=== PATIENT | male | born 1955 | race Caucasian/White ===

== ENCOUNTER 2017-01-18 05:47 | Observation (INO) | payer BC ==
[~2017-01-18] VITALS: Ht 177.8 cm; Wt 82.1 kg
--- OUTSIDE RECORDS SUMMARY | 2017-01-18 05:52 | XMS REPORT | Continuity of Care Document ---
Author Author [facility] Organization [facility] Address Unknown Phone Unavailable Allergies Active Description Code Type Severity Reaction Onset Reported/Identified Relationship to Patient Clinical Status Yes No Known Allergies [id number] Drug Allergy N/A N/A 09/19/2016 Medications Problems Date Dx Coded Attending Type Code Diagnosis Diagnosed By 09/19/2016 Leoncio Bedolla MD OT K60.1 09/19/2016 Leoncio Bedolla MD OT K60.1 09/19/2016 Leoncio Bedolla MD OT K60.1 09/20/2016 Leoncio Bedolla MD OT K60.1 09/20/2016 Leoncio Bedolla MD OT K60.1 09/20/2016 Leoncio Bedolla MD OT K60.1 09/20/2016 Leoncio Bedolla MD OT K60.1 09/20/2016 Leoncio Bedolla MD OT K60.1 09/20/2016 Leoncio Bedolla MD OT K60.1 09/20/2016 Leoncio Bedolla MD OT K60.1 09/20/2016 Leoncio Bedolla MD OT K60.1 09/20/2016 Leoncio Bedolla MD OT K60.1 09/20/2016 Leoncio Bedolla MD OT I10 09/20/2016 Leoncio Bedolla MD OT K60.1 09/20/2016 Leoncio Bedolla MD OT K64.9 Procedures Results Encounters ACCT No. Visit Date/Time Discharge Status Pt. Type Provider Facility Loc./Unit Complaint [id number] 09/20/2016 10:55:00 2016 15:05:00 DIS Outpatient Leoncio Bedolla MD [facility] ANAL FISSURECTOMY W/ SPHINCTEROTOMY [id number] 10/24/2016 14:44:00 ACT Outpatient Karina Apple [facility] OFFICE [id number] 10/04/2016 14:03:00 ACT Outpatient Karina Apple [facility] OFFICE [id number] 09/20/2016 14:08:00 ACT Outpatient Karina Apple [facility] OFFICE [id number] 09/14/2016 11:20:00 ACT Outpatient Karina Apple [facility] OFFICE [id number] 06/02/2016 14:02:00 ACT Outpatient Karina Apple [facility] OFFICE VISIT [id number] 01/19/2016 11:35:00 ACT Outpatient Karina Apple [facility] OFFICE [id number] 12/24/2015 10:26:00 ACT Outpatient Karina Apple [facility] OFFICE
[2017-01-18] MEDS ORDERED: NORMAL SALINE 1,000 ML IV ONE (06:22)
[2017-01-18] MEDS ORDERED: LORAZEPAM 2 MG/ML INJECTION IV SCH (06:30)
[2017-01-18] MEDS ORDERED: ASPIRIN 81 MG CHEWABLE TABLET PO ONE (06:30)
--- NOTE | 2017-01-18 06:30 | ERPDOC ---
Departure Impression Impression HPI - General Medical General Chief Complaint: Palpitations Stated Complaint: IRREGULAR HEART Time Seen by Provider: 06:06 Source: patient, family Exam Limitations: no limitations HPI - General Medical Initial Comments 61yo man presented to the ER this AM for heart palpitations. Pt is from [facility]; they are here visiting their daughter (in [place]). Pt has a long h/o anxiety d/o, poorly controlled. Was recently started on paxil and prn xanax with minimal relief of sx. Over the last 1.5yrs, pts anxiety has gotten much worse, progressively. Pt is having visual hallucinations (especially at night) that he cannot describe well; he feels like he is actively being pursued/ persecuted by 'Satan'. Pt feels like he is receiving messages from 'God' or ' Satan'. Pt has trouble starting motion/talking. Has trouble with memory that has developed in the last year. Occurred At: home Onset: Gradual, Getting worse Duration: other Severity: severe Associated Symptoms: other (Memory impairment, anxiety, visual hallucinations, ) Hx of Similar Symptoms: Yes Allergies: Coded Allergies: NKDA (Verified Allergy, Unknown, 01/18/17) Past History Past Medical History Metabolic: hypertension Psychological: anxiety Review of Systems Constitutional Constitutional: insomnia Cardiovascular Rhythm/Rate: palpitations, tachycardia GI Upper Abdomen: nausea Psychiatric Psychiatric: anxiety, depression, emotional instability, hallucinations, hears voices, irritability, memory impairment, memory loss, nervousness, DENIES: 0 lobsterman relationships, compulsions, delusions, illusions, nightmares, obsessions, paranoia, suicidal ideation/attempt, tension All other Systems All Other Systems: Reviewed and Negative Physical Exam General General Nourishment: well nourished, well developed, appears stated age, no acute distress, adult, obese General Body Habitus: well groomed Vitals and Pain First Documented Vital Signs Date Time Temp Pulse Resp B/P Pulse Ox O2 Delivery O2 Flow Rate FiO2 01/18/17 05:52 97.6 72 12 175/92 99 Room Air Weight: Kilograms: 82.500 Height (feet): 5 Height (inches): 10.00 Triage Pain Scale: RN VS reviewed by Provider: Yes Normal Exams: Head: Normocephalic w/o trauma Eyes: Pupils are PERRLA w/ EOMI, No scleral icterus, irritation ENMT: No facial trauma, nasal exudates, pharyngeal erythema Neck: Full range of motion, without adenopathy, JVD Lymphatic: No lymphadenopathy Musculoskeletal: No tenderness, or deformity noted Integumentary: No rashes, hives, or bruising noted Respiratory (brief) Respiratory: FOUND: clear all cooper, equal bilaterally, symmetrical, NOT FOUND : rales, wheezes Cardiovascular (brief) Cardiac: FOUND: regular rate, regular rhythm, NOT FOUND: click, gallop, murmur , pedal edema, peripheral edema, rub Capillary Refill: <2 sec Pulses: all distal extremities, equal, strong Abdomen (brief) Abdominal Brief: FOUND: bowel normo active x4, soft, NOT FOUND: distended, hepatosplenomegaly, pulsatile mass, tender Neurologic (brief) Neurological Brief: FOUND: CN w/o gross def to obs, DTR 2/4 all extremities, sensory-no gross deficits, NOT FOUND: Babinski, gait w/o gross def to obs ( halting), motor-no gross deficits (Pt has a resting tremor; is slow to move) Psychiatric (brief) Psychiatric Brief: FOUND: alert, oriented, NOT FOUND: normal affect (Flat affect with 'mask facies') Differential Diagnoses Considering: Depression, DKA, Hypo/Hyperglycemia, Hypo/Hyperkalemia, Hypo/ Hypernatremia, Medication Effect, Metabolic, Psychosis, UTI, Other (Lewy-body dementia) Progress Results/Orders Orders Procedure Category Date Status Time Cbc W/Auto LAB 01/18/17 Complete Diff-Reflex Manual 06:22 Bmp - Basic Metabolic LAB 01/18/17 Complete Panel 06:22 Probnp LAB 01/18/17 Complete 06:22 Troponin I W LAB 01/18/17 Complete Hemolysis Index 06:22 INR LAB 01/18/17 Complete 06:22 EKG EKG 01/18/17 Taken 06:22 Chest, Pa & Lateral RAD 01/18/17 Resulted 06:22 Iv Lock (Ed Only) EDM 01/18/17 Transmitted 06:22 Normal Saline (Normal PHA 01/18/17 Complete Saline Iv) 06:22 Aspirin (Asa) PHA 01/18/17 Complete 06:30 Lorazepam (Ativan) PHA 01/18/17 In Process 06:30 Ct Head W/O Contrast CT 01/18/17 Resulted 06:22 Ethanol LAB 01/18/17 Complete 06:50 Drug Screen LAB 01/18/17 Complete Urine-Test At [facility] 06:50 Acetaminophen LAB 01/18/17 Complete 06:50 Salicylate LAB 01/18/17 Complete 06:50 Ua, Dip Wreflex LAB 01/18/17 Complete Micro[employer] 06:50 Tsh - Thyroid Stim LAB 01/18/17 Complete Hormone 06:50 Magnesium LAB 01/18/17 Complete 06:50 Phosphorus LAB 01/18/17 Complete 06:50 Place In Facility: ED ADM 01/18/17 Transmitted Lab Results Laboratory Tests Test 01/18/17 06:35 01/18/17 07:49 01/18/17 10:53 White Blood Count 7.1T/MM3 Red Blood Count 4.99M/MM3 Hemoglobin 14.8GM/DL Hematocrit 41.4% Mean Corpuscular Volume 83.0UM3 Mean Corpuscular Hemoglobin 29.7UUG Mean Corpuscular Hemoglobin Concent 35.7GM/DL RDW Standard Deviation 37.7FL Platelet Count 302T/MM3 Mean Platelet Volume 9.4UM3 Immature Granulocyte % (Auto) 0.1% Neutrophils (%) (Auto) 68.8% Lymphocytes (%) (Auto) 20.3% Monocytes (%) (Auto) 10.2% Eosinophils (%) (Auto) 0.3% Basophils (%) (Auto) 0.3% Absolute Immature Granulocyte (auto 0.01T/MM3 Absolute Neutrophils (auto) 4.9T/MM3 Absolute Lymphocytes (auto) 1.4T/MM3 Absolute Monocytes (auto) 0.7T/MM3 Absolute Eosinophils (auto) 0.0T/MM3 Absolute Basophils (auto) 0.0T/MM3 Prothromb Time International Ratio 1.06 Turbidity < 20 Sodium Level 134MEQ/L Potassium Level 4.0MEQ/L Chloride Level 96MEQ/L Carbon Dioxide Level 24MEQ/L Anion Gap 14MEQ/L Blood Urea Nitrogen 14.0MG/DL Creatinine 0.9MG/DL Glomerular Filtration Rate Calc 85 BUN/Creatinine Ratio 16RATIO Glucose Level 104MG/DL Calculated Osmolality 259MOSM/KG Calcium Level 9.6MG/DL Phosphorus Level 2.9MG/DL Magnesium Level 2.1MG/DL Icterus Index < 2 Troponin I < 0.012ng/ml YL-Glh-N-Type Natriuretic Peptide 55PG/ML Thyroid Stimulating Hormone (TSH) 1.56MIU/L Chemistry Specimen Hemolysis < 15 Salicylates Level < 1.0MG/DL Acetaminophen Level < 10UG/ML Alcohol, Quantitative <10MG/DL Urine Collection Type Cleancatch-midstream Urine Color Yellow Urine Turbidity Clear Urine pH 7.0 Urine Specific [place] <=1.005 Urine Protein Negative Urine Glucose (UA) Negative Urine Ketones Negative Urine Blood Negative Urine Nitrite Negative Urine Bilirubin Negative Urine Urobilinogen 0.2EU/DL Urine Leukocyte Esterase Negative Urinalysis Comment Microscopic not ind. Urine Opiates Screen NegativeNG/ML Urine Oxycodone Screen NegativeNG/ML Urine Methadone Screen NegativeNG/ML Urine Propoxyphene Screen NegativeNG/ML Urine Barbiturates Screen NegativeNG/ML Urine Tricyclic Antidepressants NegativeNG/ML Urine Phencyclidine Screen NegativeNG/ML Urine Amphetamines Screen NegativeNG/ML Urine Methamphetamines Screen NegativeNG/ML Urine Benzodiazepines Screen NegativeNG/ML Urine Cocaine Screen NegativeNG/ML Urine Cannabinoids Screen NegativeNG/ML Lab Scanned Report REFERENCE [id number] Medications Current ED Medications Sodium Chloride (Normal Saline IV) 1,000 ml @ 0 mls/hr Q0M ONCE IV Last administered on 01/18/17 06:38; Start 01/18/17 at 06:22; Stop 01/18/17 at 06:25 ; Status DC Aspirin (ASA) 324 mg O ONCE PO Last administered on 01/18/17 06:42; Start at 06:30; Stop 01/18/17 at 06:31; Status DC Lorazepam (Ativan) 0.5 mg O IV Last administered on 01/18/17 06:40; Start at 06:30 Progress Progress 61yo man with constellation of memory impairment/loss, visual hallucinations, persecutory delusions, and Parkinsonian-like features raise suspicion for Lewy- body dementia. No significant abn's on head CT or CXR. Will request eval by [facility] for possible admission/treatment. 0940: Pt meets criteria for inpt treatment. Will perform insurance review to see if [employer] will take care of pt. Will call back with decision. 1250: SW here to discuss disposition with pt, since admission for obs could be out of pocket, if [employer] will not pay for [facility] admit. EKG EKG : Rate: 60-100 Rhythm: sinus [place]: left QRS: normal Intervals: normal ST/T: normal Interpreted by: signing physician Consult/PCP Consult/PCP #1: Physician Contacted: Rafi Time Called: 08:13 Time of first response: 08:17 Type of discussion: Admit Discussion/PCP Discussion Details 1155: [facility] has still not returned an approval/disapproval. True will continue to push for a decision. Meanwhile suggests possible obs admission while awaiting decision. Consult/PCP #2: Physician Contacted: Dr. Garcia Time Called: 11:58 Time of first response: 12:06 Type of discussion: Admit Discussion/PCP Discussion Details Will have Dr. Connor call to discuss possible admission. Xray Xray : Xray: CXR PA/Lat Interpretation: Normal, Interpreted by JIGAR Stern DO January 18, 2017 06:30
--- OUTSIDE RECORDS SUMMARY | 2017-01-18 06:32 | XMS REPORT | Continuity of Care Document ---
Author Author [facility] Organization [facility] Address Unknown Phone Unavailable Allergies Active Description Code Type Severity Reaction Onset Reported/Identified Relationship to Patient Clinical Status Yes No Known Allergies [id number] Drug Allergy N/A N/A 09/19/2016 Medications Problems [...] Status Pt. Type Provider Facility Loc./Unit Complaint [id number] 09/20/2016 10:55:00 2016 15:05:00 DIS Outpatient Leoncio Bedolla MD [facility] ANAL FISSURECTOMY W/ SPHINCTEROTOMY [id number] 10/24/2016 14:44:00 ACT Outpatient Karina Apple [facility] OFFICE [id number] 10/04/2016 14:03:00 ACT Outpatient Karina Apple [facility] OFFICE [id number] 09/20/2016 14:08:00 ACT Outpatient Karina Apple [facility] OFFICE [id number] 09/14/2016 11:20:00 ACT Outpatient Karina Apple [facility] OFFICE [id number] 06/02/2016 14:02:00 ACT Outpatient Karina Apple [facility] OFFICE VISIT [id number] 01/19/2016 11:35:00 ACT Outpatient Karina Apple [facility] OFFICE [id number] 12/24/2015 10:26:00 ACT Outpatient Karina Apple [facility] OFFICE
[2017-01-18 06:40] LABS: BASOPHILS % (AUTO) 0.3 % (0-2); EOSINOPHILS % (AUTO) 0.3 % (0-4); HCT - HEMATOCRIT 41.4 % (41-53); HGB - HEMOGLOBIN 14.8 GM/DL (13.5-17.5); IMMATURE GRANULOCYTE # (AUTO) 0.01 T/MM3 (0.00-0.03); IMMATURE GRANULOCYTE % (AUTO) 0.1 % (0.0-0.5); LYMPHOCYTES # (AUTO) 1.4 T/MM3 (1-4.8); LYMPHOCYTES % (AUTO) 20.3 % (23-45); MEAN CORPUSCULAR HGB 29.7 UUG (26-34); MEAN CORPUSCULAR HGB CONC(MCHC 35.7 GM/DL (31-37); MEAN PLATELET VOLUME 9.4 UM3 (9.4-12.4); MONOCYTES # (AUTO) 0.7 T/MM3 (0-0.8); MONOCYTES % (AUTO) 10.2 % (0-9.0); NEUTROPHILS #(AUTO)-ABSOLUTE 4.9 T/MM3 (1.8-7.7); NEUTROPHILS % (AUTO) 68.8 % (33-66); RED BLOOD COUNT 4.99 M/MM3 (4.50-5.90); WBC - WHITE BLOOD COUNT 7.1 T/MM3 (4.5-11.0)
[2017-01-18 06:45] LABS: INR 1.06 (0.77-1.03); PROTHROMBIN TIME 11.7 SEC (9.48-12.52)
[2017-01-18 06:49] LABS: ANION GAP 14 MEQ/L (5-15); BUN/CREATININE RATIO 16 RATIO (6-26); CALCIUM 9.6 MG/DL (8.4-10.2); CHLORIDE 96 MEQ/L (98-107); CO2 - CARBON DIOXIDE 24 MEQ/L (22-30); CREATININE 0.9 MG/DL (0.8-1.5); GLOMERULAR FILTRATION RATE 85; GLUCOSE 104 MG/DL (75-110); SODIUM 134 MEQ/L (134-144)
[2017-01-18] MEDS ORDERED: ALPR0.255 PO (06:54)
[2017-01-18] MEDS ORDERED: ASPI-557 PO (06:54)
[2017-01-18] MEDS ORDERED: AMLO5TAB2 PO ×2 (06:54→16:20)
[2017-01-18] MEDS ORDERED: PARO-38 PO (06:54)
[2017-01-18] MEDS ORDERED: BENA20TA3 PO (06:54)
[2017-01-18 07:01] LABS: PROBNP 55 PG/ML (0-175)
[2017-01-18 07:06] LABS: MAGNESIUM 2.1 MG/DL (1.6-2.3)
[2017-01-18 07:32] LABS: ACETAMINOPHEN < 10 UG/ML (10-30); ETHANOL <10 MG/DL (<10); PHOSPHORUS 2.9 MG/DL (2.5-4.5); SALICYLATE < 1.0 MG/DL (2-20)
[2017-01-18 07:37] LABS: THYROID STIM HORMONE-TSH 1.56 MIU/L (0.47-4.68)
--- NOTE | 2017-01-18 07:50 | DI ---
INDICATION: ITS.REASON: Palpitations PROCEDURE: CHEST 2-VIEWS UPRIGHT (PA \T\ LAT) Encounter: Initial COMPARISON: None FINDINGS: The lungs are clear without evidence of focal abnormal airspace opacity. There is no pleural effusion or pneumothorax. The heart size, mediastinal contours and pulmonary vascularity are within normal limits. IMPRESSION: No acute cardiopulmonary disease. .
--- NOTE | 2017-01-18 07:57 | DI ---
Indication: ITS.REASON: Anxiety with c/f Pick's PROCEDURE: CT HEAD W/O CONTRAST: Encounter: Initial Comparison: None Technique: Axial CT images through the head were performed without contrast. Iterative Reconstruction dose reducing technique was utilized. FINDINGS: The ventricles are of normal size, shape, and contour for the patient's age. There are scattered areas of low attenuation in the white matter which most likely represent changes from chronic microvascular ischemia. The brainstem, cerebellum, and cerebral hemispheres otherwise have a normal morphology and CT attenuation. There is no evidence of midline displacement. No hemorrhage, signs of acute territorial stroke, mass effect, mass lesions, or edema is evident. The visualized portions of the skull base, midface, and calvarium demonstrate no abnormality. The paranasal sinuses are well aerated and free of significant disease. The tympanic and mastoid cavities appear normal. IMPRESSION: No acute intracranial abnormality or hemorrhage. There is a preliminary report by [employer] radiologic. .
[2017-01-18 08:14] LABS: AMPHETAMINE SCREEN,URINE NEGATIVE; BARBITURATE SCREEN,URINE NEGATIVE; BENZODIAZEPINES SCREEN,URINE NEGATIVE; COCAINE SCREEN,URINE NEGATIVE; METHADONE SCREEN, URINE NEGATIVE; METHAMPHETAMINE SCREEN, URINE NEGATIVE; OPIATE SCREEN,URINE NEGATIVE
[2017-01-18 08:15] LABS: CANNABINOID SCREEN,URINE NEGATIVE; PHENCYCLIDINE SCREEN,URINE NEGATIVE; TRICYCLIC ANTIDEPRESSANT,URINE NEGATIVE
[2017-01-18 08:40] LABS: BLOOD, URINE NEGATIVE (NEGATIVE); COLOR,URINE YELLOW (YELLOW); LEUKOCYTE ESTERASE ,URINE NEGATIVE (NEGATIVE); NITRITE,URINE NEGATIVE (NEGATIVE); UROBILINOGEN,URINE 0.2 EU/DL (NORMAL)
--- OUTSIDE RECORDS SUMMARY | 2017-01-18 12:50 | XMS REPORT | Continuity of Care Document ---
Author Author [facility] Organization [facility] Address Unknown Phone Unavailable Allergies Active Description Code Type Severity Reaction Onset Reported/Identified Relationship to Patient Clinical Status Yes No Known Allergies [id number] Drug Allergy N/A N/A 09/19/2016 Medications Problems [...] Status Pt. Type Provider Facility Loc./Unit Complaint [id number] 09/20/2016 10:55:00 2016 15:05:00 DIS Outpatient Leoncio Bedolla MD [facility] ANAL FISSURECTOMY W/ SPHINCTEROTOMY [id number] 10/24/2016 14:44:00 ACT Outpatient Karina Apple [facility] OFFICE [id number] 10/04/2016 14:03:00 ACT Outpatient Karina Apple [facility] OFFICE [id number] 09/20/2016 14:08:00 ACT Outpatient Karina Apple [facility] OFFICE [id number] 09/14/2016 11:20:00 ACT Outpatient Karina Apple [facility] OFFICE [id number] 06/02/2016 14:02:00 ACT Outpatient Karina Apple [facility] OFFICE VISIT [id number] 01/19/2016 11:35:00 ACT Outpatient Karina Apple [facility] OFFICE [id number] 12/24/2015 10:26:00 ACT Outpatient Karina Apple [facility] OFFICE
[2017-01-18 15:35] VITALS: Ht 177.8 cm; Wt 82.1 kg
[2017-01-18 15:40] VITALS: BP 131/79; PULSE 60; RESP 16; TEMP 97.6; O2SAT 98
[2017-01-18 15:50] VITALS: PULSE 60; RESP 16
--- NOTE | 2017-01-18 16:39 | HPPDOC ---
HPI - Adult Date DATE: 01/18/17 TIME: 16:22 General Chief Complaint: anxiety attacks History of Present Illness Mr. Pack 61-year-old male who reports history of occasional anxiety attacks occurring infrequently in the past. He underwent an anal fissure repair on 02/18 after which he developed increasing generalized anxiety with increased frequency of panic attacks. Frequency of panic attacks has increased progressively since that time and episodes of become more debilitating and now last several hours at least daily. When events occur he develops tightness in his neck and throat, his heart races, he hyperventilates and feels extremely anxious. He denies dizziness with events and does not feel threatened nor has he threatened anyone else during the events. He denies having visual or auditory hallucinations. He acknowledges that he's been depressed with decreased appetite and a 20-25 pound weight loss since August in conjunction with loss of interest in activities and feeling very frustrated with some sense of hopelessness. He is not sleeping well in general. He was given Xanax for panic attacks which helped somewhat but he developed abnormal thoughts with the medication and has subsequently discontinued use. Paxil was started at 20 mg a day at some point and he reports it takes the edge off symptoms but has not alleviated panic attacks. His reports some minor confusion and forgetfulness which she attributes to the patient being so very preoccupied with the increasing panic disorder. Patient presented to the emergency room this morning for palpitations. He had a recent evaluation by Dr. Hills in [place] including a 24-hour Holter monitor and echocardiogram-results are pending. EKG was unremarkable as was screening lab work and TSH. ER obtained a history of the patient having visual hallucinations and feeling persecuted but both the patient and his deny similar symptoms. [facility] was referred [facility] but could not be accepted pending insurance approval and is subsequently hospitalized on observation basis for patient safety and to initiate therapy. Blood pressure was elevated initially in the emergency room. Past Medical History Past Medical History 1. Hypertension 2. Gastric reflux disease 3. Asthma as a child, has outgrown Surgical History Patient's Surgical History: 1. Rectal fissure repair in August 2016 2. Appendectomy 3. Left Achilles repair-remote Current Medications Home Meds Reported Medications Alprazolam (Alprazolam) 0.25 Mg Tablet, 0.25-0.5 MG PO PRN, TAB 01/18/17 Paroxetine HCl (Paroxetine HCl) 20 Mg Tablet, 20 MG PO DAILY, TAB 01/18/17 Amlodipine Besylate (Amlodipine Besylate) 5 Mg Tablet, 5 MG PO DAILY, TAB 01/18/17 Aspirin (Aspir 81) 81 Mg Tablet.dr, 1 TAB PO DAILY, #30 TAB 5 Refills 01/18/17 Benazepril HCl (Benazepril HCl) 20 Mg Tablet, 1 TAB PO DAILY, TAB 01/18/17 Allergies: Coded Allergies: NKDA (Verified Allergy, Unknown, 01/18/17) Family History Family History: Unknown, patient adopted Social History Smoking Status: Never smoker Substance Use Type: does not use Alcohol Intake: none Marital Status: Current Occupational Status: employed (bank loan collector) Advance Directives: Yes DPOA for Healthcare Only (Leila aPck, ), Yes Full Code, Yes Living Will (standard living will) Social History Comments PCP-Dr. Cheo Kebede in [facility] Review of Systems All Other Systems Comments Comprehensive review of systems obtained with patient describing occasional sinus headaches, chronic minor tinnitus, and nocturia 1-2 times per night. Remainder of review of systems is as per history of present illness or negative. Physical Exam General Vital Signs Vital Signs Date Time Temp Pulse Resp B/P Pulse Ox O2 Delivery O2 Flow Rate FiO2 01/18/17 15:50 60 16 01/18/17 15:40 97.6 131/79 98 Room Air EXAM: General-NAD, alert, fluent speech HEENT-PERRL, EOMI without nystagmus, conjugate gaze, conjunctiva clear, sclera anicteric facial structures symmetric, oropharynx clear, neck supple and without adenopathy Lungs-respirations nonlabored, good airflow, breath sounds clear anteriorly/ posteriorly Cardiac-regular rhythm, S1-S2 Abd-soft, nontender, bowel sounds present, no palpable mass Ext-without edema Skin-without rash or evidence of skin breakdown/wounds MS-no acute synovitis or significant degenerative changes Neuro-cranial nerves II through XII intact, motor tone normal, no tremors present, power 5/5 proximally and distally upper and lower extremities, sensation intact to light touch 4 extremities. Psych-calm, cooperative Height (Feet): 5 Height (Inches): 10.00 Neurologic RN Documented GCS Eye Opening: Verbal: Motor: Total: Laboratory Laboratory Tests Test 01/18/17 06:35 01/18/17 07:49 01/18/17 10:53 White Blood Count 7.1T/MM3 Red Blood Count 4.99M/MM3 Hemoglobin 14.8GM/DL Hematocrit 41.4% Mean Corpuscular Volume 83.0UM3 Mean Corpuscular Hemoglobin 29.7UUG Mean Corpuscular Hemoglobin Concent 35.7GM/DL RDW Standard Deviation 37.7FL Platelet Count 302T/MM3 Mean Platelet Volume 9.4UM3 Immature Granulocyte % (Auto) 0.1% Neutrophils (%) (Auto) 68.8% Lymphocytes (%) (Auto) 20.3% Monocytes (%) (Auto) 10.2% Eosinophils (%) (Auto) 0.3% Basophils (%) (Auto) 0.3% Absolute Immature Granulocyte (auto 0.01T/MM3 Absolute Neutrophils (auto) 4.9T/MM3 Absolute Lymphocytes (auto) 1.4T/MM3 Absolute Monocytes (auto) 0.7T/MM3 Absolute Eosinophils (auto) 0.0T/MM3 Absolute Basophils (auto) 0.0T/MM3 Prothromb Time International Ratio 1.06 Turbidity < 20 Sodium Level 134MEQ/L Potassium Level 4.0MEQ/L Chloride Level 96MEQ/L Carbon Dioxide Level 24MEQ/L Anion Gap 14MEQ/L Blood Urea Nitrogen 14.0MG/DL Creatinine 0.9MG/DL Glomerular Filtration Rate Calc 85 BUN/Creatinine Ratio 16RATIO Glucose Level 104MG/DL Calculated Osmolality 259MOSM/KG Calcium Level 9.6MG/DL Phosphorus Level 2.9MG/DL Magnesium Level 2.1MG/DL Icterus Index < 2 Troponin I < 0.012ng/ml LY-Gno-D-Type Natriuretic Peptide 55PG/ML Thyroid Stimulating Hormone (TSH) 1.56MIU/L Chemistry Specimen Hemolysis < 15 Salicylates Level < 1.0MG/DL Acetaminophen Level < 10UG/ML Alcohol, Quantitative <10MG/DL Urine Collection Type Cleancatch-midstream Urine Color Yellow Urine Turbidity Clear Urine pH 7.0 Urine Specific Mena <=1.005 Urine Protein Negative Urine Glucose (UA) Negative Urine Ketones Negative Urine Blood Negative Urine Nitrite Negative Urine Bilirubin Negative Urine Urobilinogen 0.2EU/DL Urine Leukocyte Esterase Negative Urinalysis Comment Microscopic not ind. Urine Opiates Screen NegativeNG/ML Urine Oxycodone Screen NegativeNG/ML Urine Methadone Screen NegativeNG/ML Urine Propoxyphene Screen NegativeNG/ML Urine Barbiturates Screen NegativeNG/ML Urine Tricyclic Antidepressants NegativeNG/ML Urine Phencyclidine Screen NegativeNG/ML Urine Amphetamines Screen NegativeNG/ML Urine Methamphetamines Screen NegativeNG/ML Urine Benzodiazepines Screen NegativeNG/ML Urine Cocaine Screen NegativeNG/ML Urine Cannabinoids Screen NegativeNG/ML Lab Scanned Report REFERENCE [id number] EKG EKG reviewed by myself demonstrates sinus rhythm without acute changes; LAD/ LAFB present. Radiology Chest x-ray reviewed by myself demonstrating normal-sized heart and clear lung cooper. Head CT reviewed by myself demonstrating no acute intracranial abnormalities. Ventricles are normal size. Radiology indicated some areas of low attenuation in the white matter consistent with chronic microvascular ischemia-relatively minor by my review.. Assessment & Plan Problems: (1) Panic attacks Status: Acute (2) Depression with anxiety Status: Chronic (3) Palpitations Status: Acute (4) Hypertension Status: Chronic (5) GERD (gastroesophageal reflux disease) Status: Chronic Qualifiers: Esophagitis presence: esophagitis presence not specified Qualified Codes: K21.9 - Gastro-esophageal reflux disease without esophagitis Assessment & Plan: Currently asymptomatic, no medication Assessment Patient hospitalized on observation basis pending approval for admission to [facility] which was received shortly after hospitalization. He is stable to transfer to [facility] at this time for more intensive psychiatric care and stabilization. Continue home regimen for hypertension; Paxil/alprazolam on hold- we'll defer to Dr. Bonds for psychiatric medications. Will contact Dr. Hills's office in the morning to obtain results of recent cardiac testing. Discharge to [facility] at this time. 45 minutes spent in patient care with majority of time with patient and his in review of recent symptoms and counseling. Plan/Intensity of Service Discussed with Dr. Crowe and [facility] team. X-rays reviewed by myself, EKG reviewed by myself, laboratory data reviewed; discussed with case management. Code Status Full Code Hospital Course Summary Disclaimer The hospital course summary below is not to be considered part of the above Progress Note. CRISTIANE SYED MD January 18, 2017 16:28
[2017-01-18] MEDS ORDERED: AMLODIPINE 5 MG TABLET PO SCH (22:00)
[2017-01-19] MEDS ORDERED: BENAZEPRIL 20 MG TABLET PO SCH (09:00)
[2017-01-19] MEDS ORDERED: ASPIRIN *EC* 81mg TABLET PO SCH (09:00)
== END 2017-01-18 17:10 ==
LOC: ED 05:47 → EDHOLD 12:29 → MED 14:50
PROVIDERS: ADMIT Internal Medicine; ATTEND Internal Medicine
DX: F41.0 Panic disorder [episodic paroxysmal anxiety] (principal); F41.8 Other specified anxiety disorders; R00.2 Palpitations; I10 Essential (primary) hypertension; K21.9 Gastro-esophageal reflux disease without esophagitis
CPT/HCPCS: 80048; 80306; 80307; 81003; 83735; 83880; 84100; 84443; 84484; 85025; 85610; 93005; 96361; 96374